=== PATIENT | female | born 1970 | race African-American/Black ===

== ENCOUNTER 2023-12-22 00:47 | Inpatient (IN) | payer OTHER ==
[~2023-12-22] VITALS: Ht 162.6 cm; Wt 88.5 kg
[~2023-12-22 00:47] MED LIST: AMLO10TA80 PO; CELL5 MT; HYDR200T80 MT; P20 MT
[2023-12-22 05:20] LABS: POTASSIUM 5.6 mEq/L (3.5-5.1)
[2023-12-22 06:22] LABS: CREATININE 1.5 mg/dL (0.6-1.0)
[2023-12-22 06:41] VITALS: BP 147/73; PULSE 54; RESP 20; TEMP 36.9474
[2023-12-22 11:19] LABS: HEMATOCRIT. 33.2 % (36.0-48.0); HEMOGLOBIN. 10.6 g/dL (12.0-16.0); MEAN CORPUSCULAR HEMOGLOBIN 28.4 pg (28.0-32.0); MEAN CORPUSCULAR VOLUME 88.7 fL (81.0-99.0); MEAN PLATELET VOLUME 10.5 fl (7.4-10.4); RED BLOOD CELL COUNT 3.74 mill/uL (4.2-5.4); RED CELL DISTRIBUTION WIDTH 19.8 % (11.6-14.6); WHITE BLOOD COUNT 2.4 x1000/uL (4.5-11.0)
[2023-12-22 11:30] LABS: DIFFERENTIAL COMMENT 1
[2023-12-22 11:35] LABS: PLATELET 49 x1000/uL (130-400)
[2023-12-22] MEDS ORDERED: ONDANSETRON HCL 4MG/2ML INJ IV PRN (13:45)
[2023-12-22] MEDS ORDERED: DEXTROSE 50% WATER 50ML SYRINGE IV PRN (13:45)
[2023-12-22 13:48] LABS: ANISOCYTOSIS 2+; PLATELET ESTIMATE MARKEDLY DECREASED
[2023-12-22] MEDS: LOSARTAN 50 MG TABLET PO SCH (14:19)
[2023-12-22] MEDS: HYDROXYCHLOROQUINE SULFATE 200MG TABLET PO SCH (14:19)
[2023-12-22] MEDS: PREDNISONE 20MG TABLET PO SCH (14:19)
[2023-12-22] MEDS: FUROSEMIDE 40MG TABLET PO SCH (14:19)
[2023-12-22] MEDS: BLOOD SUGAR DIAGNOSTIC STRIP TEST SCH (16:52)
[2023-12-22] MEDS: INSULIN LISPRO 100 UNITS/ML SUBCUT SCH (16:57)
[2023-12-22 20:00] VITALS: BP 138/75; PULSE 64; TEMP 36.72516; O2SAT 100
[2023-12-22] MEDS: FUROSEMIDE 40MG/4ML VIAL IVP SCH (22:00)
[2023-12-22] MEDS: INSULIN GLARGINE 100 UNITS/ML SUBCUT SCH (22:00)
[2023-12-22 22:29] VITALS: BP 144/77; PULSE 66; RESP 16; TEMP 36.14
[2023-12-22] MEDS ORDERED: CARV6.2548 MT (23:49)
[2023-12-22] MEDS ORDERED: P20 MT (23:49)
[2023-12-22] MEDS ORDERED: AMLO10TA80 MT (23:49)
[2023-12-22] MEDS ORDERED: EMPA10TA MT (23:49)
[2023-12-22] MEDS ORDERED: CELL5 MT (23:49)
[2023-12-22] MEDS ORDERED: HYDR200T80 MT (23:49)
[2023-12-23] VITALS: BP 144/75; PULSE 62; RESP 62; TEMP 36.22512; O2SAT 98
[2023-12-23 03:26] LABS: CLARITY URINE CLOUDY (CLEAR); COLOR URINE YELLOW (YELLOW); GLUCOSE URINE 3+ (NEGATIVE); KETONES URINE NEGATIVE (NEGATIVE); LEUKOCYTE ESTERASE URINE NEGATIVE (NEGATIVE); NITRITE URINE NEGATIVE (NEGATIVE); OCCULT BLOOD URINE 3+ (NEGATIVE); PH URINE 5.5 (4.5-8.0); PROTEIN URINE 3+ (NEGATIVE); SPECIFIC GRAVITY URINE 1.018 (1.005-1.030); UROBILINOGEN URINE 0.2 E.U./dL (0.2-1.0)
[2023-12-23 03:43] LABS: *AMPHETAMINES SCREEN URINE NEGATIVE (NEGATIVE); *BARBITURATES SCREEN URINE NEGATIVE (NEGATIVE); *BENZODIAZEPINES SCREEN URINE NEGATIVE (NEGATIVE); *COCAINE SCREEN URINE NEGATIVE (NEGATIVE); METHADONE URINE SCREEN NEGATIVE (NEGATIVE); OPIATES URINE SCREEN NEGATIVE (NEGATIVE); PHENCYCLIDINE URINE SCREEN NEGATIVE (NEGATIVE)
[2023-12-23 03:44] LABS: CANNABINOID URINE SCREEN NEGATIVE (NEGATIVE); ECSTASY MDMA SCREEN URINE NEGATIVE (NEGATIVE)
[2023-12-23 04:00] VITALS: PULSE 64; RESP 18; TEMP 36.22512; O2SAT 97
[2023-12-23 04:19] LABS: BACTERIA URINE 2+; SQUAMOUS EPITHELIAL CELL URINE FEW /lpf (RARE/1+); WBC URINE NONE SEEN /hpf (0-2)
[2023-12-23 08:00] VITALS: BP 162/74; PULSE 67; RESP 20; TEMP 37.00296; O2SAT 98
[2023-12-23 11:56] LABS: HEMATOCRIT. 32.6 % (36.0-48.0); HEMOGLOBIN. 10.8 g/dL (12.0-16.0); MEAN CORPUSCULAR VOLUME 87.8 fL (81.0-99.0); PLATELET 54 x1000/uL (130-400); RED BLOOD CELL COUNT 3.72 mill/uL (4.2-5.4); RED CELL DISTRIBUTION WIDTH 19.5 % (11.6-14.6); WHITE BLOOD COUNT 3.7 x1000/uL (4.5-11.0)
[2023-12-23 12:00] VITALS: BP 122/80; PULSE 65; RESP 20; TEMP 36.3918; O2SAT 100
[2023-12-23 12:01] LABS: DIFFERENTIAL COMMENT 1
[2023-12-23 12:04] LABS: POTASSIUM 4.5 mEq/L (3.5-5.1)
[2023-12-23 12:05] LABS: CALCIUM 9.2 mg/dL (8.7-10.4)
[2023-12-23 12:10] LABS: CREATININE 1.3 mg/dL (0.6-1.0)
[2023-12-23 16:00] VITALS: BP 142/71; PULSE 62; RESP 18; TEMP 36.61404; O2SAT 98
[2023-12-23] MEDS: MYCOPHENOLATE MOFETIL 500MG TABLET PO SCH (16:24)
[2023-12-23] MEDS: SIMETHICONE 80MG TABLET CHEW PO PRN (18:23)
[2023-12-23 20:00] VITALS: BP 119/65; PULSE 67; RESP 19; TEMP 36.50292; O2SAT 100
[2023-12-23 20:07] LABS: ANISOCYTOSIS 1+; PLATELET ESTIMATE MARKEDLY DECREASED
[2023-12-23] MEDS: FAMOTIDINE 20MG TABLET PO SCH (21:12)
[2023-12-24 08:00] VITALS: BP 137/72; PULSE 64; RESP 20; TEMP 36.3918; O2SAT 100
[2023-12-24 12:00] VITALS: BP 149/75; PULSE 66; RESP 20; TEMP 36.22512; O2SAT 98
[2023-12-24 16:00] VITALS: BP 124/65; PULSE 68; RESP 20; TEMP 36.78072; O2SAT 99
[2023-12-24] MEDS: METOLAZONE 2.5MG TABLET PO NR (16:00)
[2023-12-24 20:00] VITALS: BP 135/79; PULSE 68; RESP 20; TEMP 36.9474; O2SAT 100
[2023-12-24] MEDS: METHYLPREDNISOLONE SOD SUCC 40MG/ML (ACT-O-VIAL) IV SCH (21:12)
[2023-12-25] VITALS: BP 141/82; PULSE 62; RESP 20; TEMP 36.55848; O2SAT 100
[2023-12-25 04:00] VITALS: BP 148/72; PULSE 60; RESP 20; TEMP 36.44736; O2SAT 100
[2023-12-25 07:13] LABS: RNP ANTIBODY < 0.2 AI (0.0-0.9); SMITH ANTIBODY < 0.2 AI (0.0-0.9)
[2023-12-25 09:09] LABS: COMPLEMENT C3 77 mg/dL (82-167); COMPLEMENT C4 8 mg/dL (12-38)
[2023-12-25 10:10] LABS: ANTI-DNA DOUBLE STRANDED QUANT 8 IU/mL (0-9)
[2023-12-25 16:00] VITALS: BP 132/73; PULSE 61; RESP 18; TEMP 36.50292; O2SAT 100
[2023-12-25 20:00] VITALS: BP 127/71; PULSE 63; RESP 18; TEMP 37.00296; O2SAT 99
[2023-12-26] VITALS: BP 136/70; PULSE 61; RESP 18; TEMP 36.89184; O2SAT 100
[2023-12-26] MEDS: ACETAMINOPHEN 325MG TABLET PO PRN (02:33)
[2023-12-26 04:00] VITALS: BP 150/81; PULSE 66; RESP 18; TEMP 36.78072; O2SAT 98
[2023-12-26 07:32] LABS: POTASSIUM 4.4 mEq/L (3.5-5.1)
[2023-12-26 07:33] LABS: CALCIUM 8.1 mg/dL (8.7-10.4)
[2023-12-26 07:37] LABS: CREATININE 1.3 mg/dL (0.6-1.0)
[2023-12-26 08:00] VITALS: BP 143/77; PULSE 62; RESP 19; TEMP 36.83628; O2SAT 97
[2023-12-26 12:00] VITALS: BP 137/67; PULSE 77; RESP 18; TEMP 36.61404; O2SAT 97
[2023-12-26] MEDS ORDERED: ACYCLOVIR 400 MG TABLET PO SCH (13:00)
[2023-12-26] MEDS: ACYCLOVIR 400 MG TABLET PO SCH (14:00)
[2023-12-26 16:00] VITALS: BP 155/84; PULSE 67; RESP 19; TEMP 36.22512; O2SAT 100
[2023-12-26 20:00] VITALS: BP 150/89; PULSE 59; RESP 19; TEMP 36.83628; O2SAT 97
[2023-12-26] MEDS: FAMOTIDINE 20MG TABLET PO SCH (21:36)
[2023-12-27] VITALS: BP 148/82; PULSE 62; RESP 19; TEMP 36.9474; O2SAT 99
[2023-12-27 08:00] VITALS: BP 138/81; PULSE 66; RESP 19; TEMP 35.2806; O2SAT 97
[2023-12-27 12:00] VITALS: BP 127/74; PULSE 65; RESP 19; TEMP 36.3918; O2SAT 96
[2023-12-27 13:10] LABS: ATYPICAL P-ANCA <1:20 titer (Neg:<1:20); CYTOPLASMIC C-ANCA <1:20 titer (Neg:<1:20); PERINUCLEAR P-ANCA <1:20 titer (Neg:<1:20)
[2023-12-27 16:00] VITALS: BP 131/69; PULSE 60; RESP 18; TEMP 36.61404; O2SAT 99
[2023-12-27 17:06] LABS: ANTI-MYELOPEROXIDASE AB < 0.2 units (0.0-0.9); ANTI-PROTEINASE 3 ABS < 0.2 units (0.0-0.9); GLYCOPROTEIN IV AB Negative (Negative); HLA CLASS 1 ANTIBODY Negative (Negative); IIb/IIIa ANTIBODY Negative (Negative); Ia/IIa ANTIBODY Negative (Negative); Ib/IX ANTIBODY Negative (Negative)
[2023-12-27 20:00] VITALS: BP 131/74; PULSE 68; RESP 19; TEMP 36.50292; O2SAT 100
[2023-12-27] MEDS: PANTOPRAZOLE 40MG DR TABLET PO SCH (21:00)
[2023-12-28] VITALS: BP 120/64; PULSE 68; RESP 19; TEMP 36.78072; O2SAT 100
[2023-12-28 08:00] VITALS: BP 148/67; PULSE 64; RESP 19; TEMP 37.11408; O2SAT 99
[2023-12-28 12:00] VITALS: BP 112/60; PULSE 66; RESP 19; TEMP 36.61404; O2SAT 98
[2023-12-28] MEDS ORDERED: P20 MT (13:23)
[2023-12-28 16:00] VITALS: BP 110/66; PULSE 66; RESP 19; TEMP 36.55848; O2SAT 96
[2023-12-28 18:56] VITALS: BP 110/66; PULSE 66; TEMP 97.8; O2SAT 96
== END 2023-12-28 20:06 | disposition home or self-care (01) | DRG 194 ==
LOC: ER 00:47 → 5WST 01:49 → 6WST 21:40 → 6EST 12-25 12:57
PROVIDERS: ADMIT Internal Medicine; ATTEND Internal Medicine
DX: I13.2 Hypertensive heart and chronic kidney disease with heart failure and with stage 5 chronic kidney disease, or end stage renal disease (principal); D61.818 Other pancytopenia; I27.20 Pulmonary hypertension, unspecified; N17.9 Acute kidney failure, unspecified; J45.901 Unspecified asthma with (acute) exacerbation; E87.1 Hypo-osmolality and hyponatremia; M32.14 Glomerular disease in systemic lupus erythematosus; I50.43 Acute on chronic combined systolic (congestive) and diastolic (congestive) heart failure; I42.9 Cardiomyopathy, unspecified; N18.1 Chronic kidney disease, stage 1; K21.9 Gastro-esophageal reflux disease without esophagitis; R73.03 Prediabetes; E87.5 Hyperkalemia; I08.1 Rheumatic disorders of both mitral and tricuspid valves; B02.9 Zoster without complications
CPT/HCPCS: 36415; 71045; 76700; 80048; 80305; 81003; 82962; 83520; 85025; 86022; 86160; 86225; 86235; 86256; 86332; 93005; 93970; 97161; 97166; 99285; C1893; J1815; J1940; J2920; J7512; J7517